=== PATIENT | male | born 1990 | race Caucasian/White ===

== ENCOUNTER 2018-03-26 10:57 | Emergency (ER) | payer MEDICAID ==
[2018-03-26 11:58] VITALS: BP 144/93
[2018-03-26] MEDS ORDERED: NS 0.9% 1000 ML* 1,000 ML BOLUS ONE (12:17)
[2018-03-26] MEDS ORDERED: Dexamethasone IV* 4 MG/ML 1 ML (4 MG) IV SLOW PU ONE (12:17)
[2018-03-26] MEDS ORDERED: Clindamycin CAP* 150 MG PO ONE (12:18)
[2018-03-26] MEDS ORDERED: DEXAMETHASONE IVPB ONE (12:20)
[2018-03-26] MEDS ORDERED: NS 0.9% IVPB ONE (12:20)
[2018-03-26] MEDS ORDERED: Dexamethasone IV* 4 MG/ML 1 ML (4 MG) ONE (12:24)
--- NOTE | 2018-03-26 12:30 | UC ---
Throat Pain/Nasal Vish HPI - HPI Summary HPI Summary: The patient is a 27-year-old male with a 2 day history of progressively worsening sore throat. He has had fever and chills. He is having a hard time swallowing. Initially both sides of his throat hurt equally, but now his right side is markedly more painful than the left. He states he feels like he is getting dehydrated. He has a history of frequent strep throat. He states that he has amoxicillin and Ceclor allergy. He suspects that these both cause a rash. He has taken clindamycin in the past. He denies any nausea vomiting or diarrhea. - History of Current Complaint Chief Complaint: UCGeneralIllness Stated Complaint: SORE THROAT Time Seen by Provider: 03/26/18 12:10 Hx Obtained From: Patient Onset/Duration: Gradual Onset, Still Present Severity: Severe Pain Intensity: 9 Pain Scale Used: 0-10 Numeric Associated Signs & Symptoms: Positive: Dysphagia - Epiglottits Risk Factors Epiglottis Risk Factors: Negative - Allergies/Home Medications Allergies/Adverse Reactions: Allergies Allergy/AdvReac Type Severity Reaction Status Date / Time amoxicillin Allergy Unknown Verified 03/26/18 11:54 Reaction Details cefaclor [From Ceclor] Allergy Unknown Verified 03/26/18 11:54 Reaction Details Home Medications: Home Medications Ibuprofen TAB* [Advil TAB*] 600 mg PO Q6H PRN 03/26/18 [History Confirmed ] PMH/Surg Hx/FS Hx/Imm Hx Previously Healthy: Yes - Surgical History Surgical History: None - Family History Known Family History: Positive: Hypertension - Social History Alcohol Use: Occasionally Substance Use Type: Marijuana Substance Use Comment - Amount & Last Used: occasional Smoking Status (MU): Heavy Every Day Tobacco Smoker Type: Cigarettes Amount Used/How Often: 1/2 PPD Review of Systems Constitutional: Fever, Chills Skin: Negative Eyes: Negative ENT: Sore Throat Respiratory: Negative Cardiovascular: Negative Gastrointestinal: Negative Genitourinary: Negative Motor: Negative Neurovascular: Negative Musculoskeletal: Negative Neurological: Negative Psychological: Negative Is Patient Immunocompromised?: No All Other Systems Reviewed And Are Negative: Yes Physical Exam Triage Information Reviewed: Yes Appearance: Well-Appearing, No Pain Distress, Well-Nourished Vital Signs: Initial Vital Signs Temp 100.1 F 03/26/18 11:53 Pulse 114 03/26/18 11:53 Resp 15 03/26/18 11:53 BP 144/93 03/26/18 11:53 Pulse Ox 100 03/26/18 11:53 Vital Signs Reviewed: Yes Eyes: Positive: Conjunctiva Clear ENT: Positive: Hearing grossly normal, Pharyngeal erythema, Tonsillar swelling, Tonsillar exudate. Negative: Trismus, Muffled voice, Hoarse voice, Uvula midline - uvula with slight displacement to left, fullness right soft palate Dental Exam: Normal Neck: Positive: Supple, Enlarged Nodes @ - bilat ant cerv adenopathy Respiratory: Positive: Lungs clear, Normal breath sounds, No respiratory distress, No accessory muscle use Cardiovascular: Positive: RRR, No Murmur, Tachycardia Musculoskeletal: Positive: ROM Intact, No Edema Neurological: Positive: Alert Psychological Exam: Normal Skin Exam: Normal Diagnostics - Laboratory Diagnostic Studies Completed/Ordered: strep (+) Throat Pain/Nasal Course/Dx - Course Assessment/Plan: pt was stuck for an IV once. unsuccessful. If refuse any additional attempts. advised of need for close follow up and recheck tomorrow. he is aware he may need surgery if this worsens - Differential Dx/Diagnosis Provider Diagnoses: peritonsillar abscess Discharge - Sign-Out/Discharge Documenting (check all that apply): Patient Departure - Discharge Plan Condition: Stable Disposition: HOME Prescriptions: Clindamycin Cap(NF) [Clindamycin Cap 300 mg Cap(NF)] 300 mg PO QID #28 cap Patient Education Materials: Probiotic (By mouth), Peritonsillar Abscess (ED) Referrals: Taye Varela MD [Primary Care Provider] - 1 Day Additional Instructions: You have an early peritonsillar abscess IF YOU PAIN WORSENS OR IF IT GETS HARDER TO SWALLOW GO DIRECTLY TO THE ER you should get rechecked tomorrow - Billing Disposition and Condition Condition: STABLE Disposition: Home
[2018-03-26] MEDS ORDERED: Dexamethasone IV* 4 MG/ML 1 ML (4 MG) IM ONE (12:43)
== END 2018-03-26 12:58 | disposition home or self-care (01) ==
LOC: UCCORT 10:57
DX: J36 Peritonsillar abscess (principal); Z88.0 Allergy status to penicillin; Z88.1 Allergy status to other antibiotic agents; F17.210 Nicotine dependence, cigarettes, uncomplicated
CPT/HCPCS: 87651; 96372; 99212; A9270-GY; G0463; J1100